=== PATIENT | male | born 1980 | race Asian ===

== ENCOUNTER 2016-03-31 00:43 | Emergency (ER) | payer OTHER ==
[~2016-03-31] VITALS: Ht 179.1 cm; Wt 76.3 kg
[2016-03-31 00:51] VITALS: TEMP 36.7; Ht 179.1 cm; Wt 76.3 kg
[2016-03-31 01:50] VITALS: BP 111/74; PULSE 76; O2SAT 98
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
== END 2016-03-31 01:51 | disposition home or self-care (01) ==
LOC: C.EDB 00:46 → MERGE 00:46 → C.EDA 01:51
DX: S09.90XA Unspecified injury of head, initial encounter (principal); V43.52XA Car driver injured in collision with other type car in traffic accident, initial encounter